=== PATIENT | male | born 2000 | race Caucasian/White ===

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

== ENCOUNTER → 2024-06-28 | Outpatient (CLI) | payer MEDICAID, OTHER, SELFPAY ==
[~2024-06-28] MED LIST: ALBU2.5V10 NEB; GUAI100L6 PO; IPRA0.00 NEB; PRED20TA PO; VENTAER INH; ZYRTTAB8 PO
== END ==
LOC: M WUC 14:32
PROVIDERS: ATTEND Physician Assistant
DX: S93.691A Other sprain of right foot, initial encounter (principal); S93.411A Sprain of calcaneofibular ligament of right ankle, initial encounter; X58.XXXA Exposure to other specified factors, initial encounter; Y92.9 Unspecified place or not applicable; Y93.9 Activity, unspecified; Y99.9 Unspecified external cause status

== ENCOUNTER → 2024-11-08 | Outpatient (REF) | payer OTHER ==
[2024-11-08 19:52] LABS: PLATELET COUNT, AUTOMATED 254 10^3/uL (150-450)
[2024-11-08 19:56] LABS: ALT/SGPT 37 U/L (7.0-40); AST/SGOT 29 U/L (<34); CALCIUM LEVEL 8.7 MG/DL (8.5-10.1); CARBON DIOXIDE LEVEL 25 MMOL/L (20-31); CHLORIDE LEVEL 107 MMOL/L (98-107); CHOLESTEROL LEVEL 172 MG/DL (<200); CHOLESTEROL RISK RATIO 4.71 (<5); CREATININE FOR GFR 0.68 MG/DL (0.70-1.30); GLOMERULAR FILTRATION RATE > 90.0 (>60); LDL CHOLESTEROL 113.3 MG/DL (<100); NON-HDL-C 135.5 MG/DL; POTASSIUM SERUM 4.1 MMOL/L (3.5-5.1); SODIUM LEVEL 138 MMOL/L (136-145); TRIGLYCERIDES LEVEL 111 MG/DL (<150)
[2024-11-08 19:58] LABS: TOTAL 25(OH) VITAMIN D 13.2 NG/ML (20.0-100.0)
[2024-11-09 00:58] LABS: ESTIMATED AVERAGE GLUCOSE 108.0 MG/DL (60-110)
== END ==
LOC: M LAB REF 16:02
PROVIDERS: ATTEND Nurse Practitioner Family
DX: I10 Essential (primary) hypertension (principal); E66.9 Obesity, unspecified

== ENCOUNTER → 2025-01-23 | Outpatient (CLI) | payer OTHER | LOC: M RAD 08:20 | PROVIDERS: ATTEND Nurse Practitioner Family | DX: I10 Essential (primary) hypertension (principal); R06.83 Snoring ==